=== PATIENT | male | born 2000 | race African-American/Black ===

== ENCOUNTER 2019-04-10 22:29 | Emergency (ER) | payer SELFPAY ==
[2019-04-10] MEDS ORDERED: Lorazepam 1 MG TAB ONE (23:17)
== END 2019-04-10 23:42 | disposition home or self-care (01) ==
LOC: ERS 22:29
DX: F41.9 Anxiety disorder, unspecified (principal); F17.200 Nicotine dependence, unspecified, uncomplicated; Z71.6 Tobacco abuse counseling
CPT/HCPCS: 93005; 99406

== ENCOUNTER 2019-04-15 21:27 | Emergency (ER) | payer SELFPAY ==
[2019-04-15 23:04] LABS: #Lymphocytes 1.5 thou/uL (1.20-3.40); #Monocytes 0.7 thou/uL (0.11-0.59); %Basophils 0.3 % (0.0-1.0); %Eosinophils 0.1 % (0.0-10.0); %Lymphocytes 11.3 % (28.0-48.0); %Monocytes 5.2 % (0.0-4.0); %Neutrophils 83.1 % (31.0-61.0); Hemoglobin 15.9 g/dL (14.0-18.0); Mean Corpuscular Volume 88.6 fL (78.0-98.0); Mean Platelet Volume 7.7 fL (7.4-10.4); Platelet Count 243 thou/uL (130-400); Red Blood Cell (RBC) Count 5.13 mill/uL (4.00-5.20); White Blood Cell (WBC) Count 13.3 thou/uL (4.8-10.8)
[2019-04-15 23:23] LABS: ALT (SGPT) 12 U/L (8-55); AST (SGOT) 14 U/L (10-45); Albumin 4.6 g/dL (3.5-5.0); Alkaline Phosphatase 60 U/L (Less than 750); Anion Gap 16 mmol/L (10-20); BUN (Urea Nitrogen) 13 mg/dL (8.4-21.0); Bilirubin, Total 1.7 mg/dL (0.2-1.2); Calc. Creatinine Clearance 0 mL/min (70-130); Calcium 9.8 mg/dL (7.8-10.44); Carbon Dioxide 21 mmol/L (22-29); Chloride 106 mmol/L (98-107); Estimated GFR-MDRD Greater than 90; Globulin 2.6 g/dL (2.4-3.5); Glucose 107 mg/dL (70-105); Potassium 3.8 mmol/L (3.5-5.1); Protein, Total 7.2 g/dL (6.0-8.3); Sodium 139 mmol/L (136-145)
== END 2019-04-15 23:42 | disposition home or self-care (01) ==
LOC: ERS 21:27
DX: R07.89 Other chest pain (principal); R55 Syncope and collapse; F90.9 Attention-deficit hyperactivity disorder, unspecified type; F17.200 Nicotine dependence, unspecified, uncomplicated
CPT/HCPCS: 36415; 80053; 84484; 85025; 93005

== ENCOUNTER 2020-07-03 20:37 | Emergency (ER) | payer SELFPAY | END 2020-07-03 23:07 | disposition home or self-care (01) | LOC: ERS 20:37 | DX: J02.0 Streptococcal pharyngitis (principal); F90.9 Attention-deficit hyperactivity disorder, unspecified type; F17.200 Nicotine dependence, unspecified, uncomplicated | CPT/HCPCS: 87430; 99283 ==